=== PATIENT | female | born 1945 | race Caucasian/White ===

== ENCOUNTER 2016-10-30 12:35 | Emergency (ER) | payer MEDICARE ==
[~2016-10-30] VITALS: Ht 165.1 cm; Wt 70.5 kg
[2016-10-30] VITALS (7 sets, daily range): BP systolic 119–160; BP diastolic 54–106; PULSE 70–117; RESP 13–19; O2SAT 97–100
--- NOTE | 2016-10-30 13:05 | ED.REPORT ---
HPI-General Illness Date of Service Oct 30, 2016 ED Provider: Dr. Aburto Pt is a 71 year old female with a hx of recent lumbar surgery last week presenting to the ED complaining of weakness and fatigue onset in the last few days. Associated symptoms include feeling shaky, hot and cold, lightheaded, dizziness, and palpitations. Denies fever, chest pain, or SOB. She was taking Tramadol every 4 hours and Flexeril every 8 hours and she developed constipation so she stopped taking both medications. She had her laminotomy at [place]. Nursing Notes Stated Complaint: LIGHT HEADED/DIZZY/IRREGULAR HR Chief Complaint: General Complaint Nursing Notes Reviewed: Yes Allergies: Coded Allergies: codeine (Verified Allergy, Severe, 10/30/16) erythromycin base (Verified Allergy, Severe, 10/30/16) General Time Seen by MD: 13:05 Chief Complaint Weakness Hx Obtained From: Patient, Spouse Arrived By: Walk-in Sudden in Onset?: No Onset Occurred: 3 days ago Symptom Duration: Since onset Severity: Current: No pain currently Severity: Maximum: No pain Recent Healthcare: No recent hospitalization, Recent doctor visit, Previous surgery Similar Sx Previous: No Past Medical History Past Medical History denies Past Surgical History L4-L5 laminotomy last week Smoking History Unknown if Ever Smoker Ambulatory Status Independent Review of Systems Full Review of Systems Constitutional: Reports: Chills, Fatigue, Denies: Fever Respiratory: Denies: Shortness of breath Cardiovascular: Reports: Palpitations, Denies: Chest pain Neurologic: Reports: Dizziness, Lightheaded, Shaking, Weakness Complete sys rev & neg: except as marked. Physical Exam Vital Signs Vital Signs Date Time Temp Pulse Resp B/P Pulse Ox O2 Delivery O2 Flow Rate FiO2 10/30/16 17:46 36.8 100 19 129/70 100 Room Air 10/30/16 17:26 100 129/70 10/30/16 17:25 95 133/88 10/30/16 17:25 89 134/62 10/30/16 16:29 96 19 122/54 100 10/30/16 15:15 89 13 119/100 100 Room Air 10/30/16 14:25 70 15 151/70 100 Room Air 10/30/16 12:38 36.8 117 18 160/106 97 Room Air Initial VS: Reviewed General/Constitutional: Well-developed, Well-nourished Head / Eyes: Atraumatic, Normocephalic, PERRL ENT: Mucous membranes moist, Conjunctiva normal, No scleral icterus Neck: Supple, Non-tender, Full range of motion Respiratory: Breath sounds normal, Clear to auscultation, No respiratory distress Cardiovascular: Regular rate & rhythm, Heart sounds normal, Intact distal pulses Abdomen / GI: Soft, Non-tender, No guarding, No rebound, No distention Extremities: Vascular intact, Neuro intact, No swelling, No tenderness Skin: Warm, Dry, No cyanosis Neurologic: Alert, Oriented, Nonfocal Psychiatric: Mood/affect normal, Behavior normal, Normal thought content Interpretation & Diagnostics Lab Results Interpretation Result Diagram: 10/30/16 1340 10/30/16 1340 Test 10/30/16 13:40 White Blood Count 11.2th/mm3 (3.8-10.1) Red Blood Count 4.76mil/mm3 (3.90-5.20) Hemoglobin 13.7g/dL (12.0-15.6) Hematocrit 41.5% (35.0-46.0) Mean Corpuscular Volume 87.2fL (81-100) Mean Corpuscular Hemoglobin 28.8pg (27.0-35.0) Mean Corpuscular Hemoglobin Concent 33.0% (32.0-37.0) Red Cell Distribution Width 13.7% (12.3-15.4) Platelet Count 348bil/L (150-400) Neutrophils (%) (Auto) 68.3% (40-74) Lymphocytes (%) (Auto) 17.3% (14-46) Monocytes (%) (Auto) 11.1% (4-12) Eosinophils (%) (Auto) 2.7% (0-5) Basophils (%) (Auto) 0.3% (0-3) D-Dimer 0.72mg/L FEU (<0.50) Sodium Level 136mEq/L (134-144) Potassium Level 4.4mEq/L (3.5-5.2) Chloride Level 96mEq/L (97-108) Carbon Dioxide Level 23mmol/L (18-29) Blood Urea Nitrogen 14mg/dL (8-27) Creatinine 0.56mg/dL (0.57-1.00) Estimat Glomerular Filtration Rate 153mL/min (>59) Glucose Level 117mg/dL (60-99) Calcium Level 9.6mg/dL (8.5-10.1) Magnesium Level 2.2mg/dL (1.6-2.6) Total Bilirubin 0.2mg/dL (0.0-1.2) Aspartate Amino Transf (AST/SGOT) 17U/L (0-50) Alanine Aminotransferase (ALT/SGPT) 23U/L (0-32) Alkaline Phosphatase 103U/L (25-165) Troponin T < 0.010ug/L (0.0-0.011) Total Protein 7.7g/dL (6.4-8.4) Albumin 4.2g/dL (3.4-5.0) Hold Chowdhury Top Tube Received (Received) ECG Interpretation Time: 13:55 Interpreted by: ED physician Normal ECG Interpretation: Normal ECG w/ rate of... (89), Normal rate, Normal sinus rhythm X-Ray Chest Interpretation Chest Xray Interpretation: IMPRESSION: 1. No acute cardiopulmonary disease. 2. 1.5 cm nodular opacity projects over the right lower thorax, possibly a prominent granuloma. Recommend further characterization with non-emergent noncontrast chest CT. Dictated by: Cesar Florentino M.D. on 10/30/2016 at 14:07 View: Portable, 1 view Interpretation / Wet Read by: Interpret - Radiologist CT Chest Interpretation IMPRESSION: 1. No acute pulmonary embolus. 2. Partially characterized cholelithiasis. Dictated by: Jennifer Emery M.D. on 10/30/2016 at 16:04 Study type: CT pulm angiogram Interpretation / Wet Read by: Interpret - Radiologist Re-Eval/Medical Decision Med Decision/Clinical Course 71-year-old female was one week status post lumbar surgery presenting with fatigue and lightheadedness. Orthostatics are positive. Her labs are unremarkable. D-dimer is mildly elevated CT [place] chest no acute pathology. Patient felt much better after IV fluids. Likely due to orthostatic hypotension dehydration. Patient is stable for discharge home with oral hydration and return precautions. Follow-up with primary doctor tomorrow. Time of Eval: 16:52 Patient Status: Condition improved Re-Evaluation/Progress Note: Discussed CT and lab results and plan for discharge. Pt understands and agrees. Counseled Regarding: Diagnosis, Lab results, Need for follow-up, When/why to return to ED Discharge & Departure Primary Impression: Orthostatic hypotension Additional Impression: Dehydration Disposition: Home Discharge Condition All VS Reviewed: Yes Condition: Improved Additional Instructions: Your CT scan and labs were all normal and did not show any sign of a blood clot. They did show that you are dehydrated though. Your labs looked a lot better after fluids. Drink lots of fluids, especially drinks with electrolytes like Gatorade, Powerade, or Crystal Lite. Return to the ER for any shortness of breath, chest pain, fever, nausea, vomiting, or any other new or worsening symptoms. Follow up with your primary care doctor in the next few days. Referrals: Nima Cruz MD (PCP) Sylvieibwendy Attestation Portions of this note were transcribed by Magdalena Sarmiento. I, Dr. Aburto personally performed the history, physical exam and medical decision-making; I reviewed and confirmed the accuracy of the information in the transcribed note. Signed by: Gabriella Tatum, 10/30/2016. copies to: Nima Cruz MD, Ben M MD Oct 30, 2016 13:05 MAGDALENA SARMIENTO Oct 30, 2016 13:16
[2016-10-30] MEDS ORDERED: 0.9% Sodium Chloride 1,000 ML IV ONE (13:21)
[2016-10-30 13:55] LABS: BASOPHILS % (AUTO) 0.3 % (0-3); EOSINOPHILS % (AUTO) 2.7 % (0-5); MONOCYTES % (AUTO) 11.1 % (4-12); Mean Corpuscular Hemoglobin 28.8 pg (27.0-35.0); Mean Corpuscular Volume 87.2 fL (81-100); NEUTROPHILS % (AUTO) 68.3 % (40-74); Platelet Count 348 bil/L (150-400)
--- NOTE | 2016-10-30 14:11 | DRSVH ---
PROCEDURE: X-RAY CHEST ONE VIEW, PORTABLE ([id number]) INDICATIONS: 71 year-old female with dyspnea. TECHNIQUE: One view of the chest was acquired. COMPARISON: None. FINDINGS: Surgical changes and devices: None. Lungs and pleura: No pleural effusions or pneumothorax. Lungs are clear, except for 1.5 cm nodular opacity projecting over the right lower thorax. Mediastinum: Mediastinal contours appear normal. Heart size is normal. Bones and chest wall: No suspicious bony lesions. Overlying soft tissues appear unremarkable. IMPRESSION: 1. No acute cardiopulmonary disease. 2. 1.5 cm nodular opacity projects over the right lower thorax, possibly a prominent granuloma. Recom mend further characterization with non-emergent noncontrast chest CT. Dictated by: Cesar Florentino M.D. on 10/30/2016 at 14:07 Approved by: Cesar Florentino M.D. on 10/30/2016 at 14:09
[2016-10-30 14:21] LABS: TROPONIN T < 0.010 ug/L (0.0-0.011)
[2016-10-30 14:29] LABS: Magnesium 2.2 mg/dL (1.6-2.6)
--- NOTE | 2016-10-30 16:12 | DRSVH ---
PROCEDURE: CT ANGIO CHEST PULMONARY EMBOLISM ([id number]) INDICATIONS: post surgical/elevated d-dimer TECHNIQUE: After the administration of intravenous contrast, 2 mm thick sections acquired from the pulmonary api dori to the posterior costophrenic angles. 3-dimensional maximum intensity projection (MIP) coronal a nd sagittal reformats were then acquired through the thorax. For radiation dose reduction, the follo wing was used: automated exposure control, adjustment of mA and/or kV according to patient size. COMPARISON: None. FINDINGS: Image quality: Excellent. Pulmonary arteries: Pulmonary arteries are normal in size, and demonstrate no intraluminal filling d efects to suggest central pulmonary embolism. Lungs and pleura: Lungs are clear. No pleural effusions or pneumothorax. Central and peripheral ai rways are patent. Mediastinum: Heart size is normal, without pericardial effusion. No mediastinal or hilar adenopathy . Thoracic aorta is normal in caliber and enhancement. Esophagus is normal in caliber, without hiat al hernia. Bones and chest wall: No suspicious bony lesions. Moderate degenerative changes present throughout t he mid thoracic spine. Ribs and thoracic spine appear intact throughout. Thyroid gland is unremarkab le. No axillary or supraclavicular adenopathy. Abdomen: Calcified gallstones are partially visualized in the gallbladder fundus. Visualized upper a bdominal solid organs appear normal in the early arterial phase of enhancement. IMPRESSION: 1. No acute pulmonary embolus. 2. Partially characterized cholelithiasis. Dictated by: Jennifer Emery M.D. on 10/30/2016 at 16:04 Approved by: Jennifer Emery M.D. on 10/30/2016 at 16:11
== END 2016-10-30 17:47 | disposition home or self-care (01) ==
LOC: SED 12:35
DX: I95.1 Orthostatic hypotension (principal); E86.0 Dehydration; Z98.890 Other specified postprocedural states; Z88.5 Allergy status to narcotic agent; Z88.8 Allergy status to other drugs, medicaments and biological substances
CPT/HCPCS: 36415; 71010; 71275; 80053; 83735; 84484; 85025; 85378; 93005; 96361; 96374; 99285; J2060; J7030; Q9967